=== PATIENT | male | born 1950 | race Caucasian/White ===

== ENCOUNTER 2022-08-06 03:34 | Emergency (ER) | payer MEDICARE ==
[2022-08-06] MEDS ORDERED: Dexamethasone 4 MG TAB ONE (04:12)
[2022-08-06 04:55] LABS: SARS-CoV-2 NAA Rapid Test Not Detected (NotDetected)
== END 2022-08-06 05:12 | disposition home or self-care (01) ==
LOC: CSHERS 03:34
DX: T46.4X5A Adverse effect of angiotensin-converting-enzyme inhibitors, initial encounter (principal); E03.9 Hypothyroidism, unspecified; E78.00 Pure hypercholesterolemia, unspecified; I10 Essential (primary) hypertension; F17.210 Nicotine dependence, cigarettes, uncomplicated; Z20.822 Contact with and (suspected) exposure to COVID-19
CPT/HCPCS: 99285; J8540; U0002